=== PATIENT | male | born 1975 | race Caucasian/White ===

== ENCOUNTER 2018-07-01 22:20 | Emergency (ER) | payer BC ==
[~2018-07-01] VITALS: Ht 177.8 cm; Wt 108.9 kg
[2018-07-01 22:20] VITALS: BP 139/109
[2018-07-01] MEDS ORDERED: SOLU-MEDROL IV STA (22:25)
[2018-07-01] MEDS ORDERED: PEPCID IV STA (22:25)
[2018-07-01] MEDS ORDERED: BENADRYL IV STA (22:25)
--- NOTE | 2018-07-01 22:31 | ER.PDOC ---
General Chief Complaint: Requesting Medical Care Stated Complaint: ALLG REACTION Time seen by MD: 22:18 Source: patient Exam Limitations: no limitations History of Present Illness Initial Comments patient had allergy shot tonight and got welt in the area of the injection and then felt tightness in his throat, he took a benadryl tab and gave himself an epinephrine shot and feels better now no zulay. Severity: moderate Associated Symptoms: skin rash Identified Cause: yes Exposure: other Past Medical History Medical History: other Constitutional: denies chills, denies fever EENTM: denies throat pain Respiratory: denies cough, denies shortness of breath Cardiovascular: denies chest pain, denies palpitations, denies syncope Gastrointestinal: denies abdominal pain Genitourinary: denies dysuria Musculoskeletal: denies back pain Skin: rash Psychiatric/Neurological: denies headache Hematologic/Lymphatic: denies blood clots Physical Exam General Appearance: alert, no distress HEENT: ENT nml inspection, pharynx, voice nml Skin: other Extremities: non-tender, nml ROM Neck: nml inspection Respiratory: no resp. distress, breath sounds nml CVS: reg. rate & rhythm, heart sounds nml Abdomen: non-tender NEURO/PSYCH: CN's nml as tested, motor nml, sensation nml Comments there is an area of urticaria in the left arm at the injection site, no other rash noted, the area is localized to the injection site and is approx silver dollar sized, no signs of infection, airway is intact with no signs of any swelling of throat or oral structures Results/Orders Results/Orders Orders - CRYSTAL PUENTES MD Methylprednisolone Sod Succ (Solu-Medrol (07/01/18 22:25) Diphenhydramine Hcl (Benadryl) (07/01/18 22:25) Famotidine/Pf (Pepcid) (07/01/18 22:25) Saline Lock (07/01/18 22:25) Progress Progress rx for pepcid, prednisone, and epipen Departure Time of Disposition: 23:44 Disposition: 01 HOME, SELF-CARE Impression: Primary Impression: Allergic reaction Condition: Improved Patient Instructions: Anaphylactic Reaction Referrals: [facility] (PCP) PRIMARY CARE PROVIDER Additional Instructions: return for any worsening symptoms, take benadryl over the counter as directed for 5 days, do not take allergy shots Duration or Time Spent with Pa: 15 CRYSTAL PUENTES MD Jul 01, 2018 22:31
[2018-07-01] MEDS ORDERED: PEPCID IV ONE (22:40)
[2018-07-01] MEDS ORDERED: SOLU-MEDROL ONE (22:41)
[2018-07-01] MEDS ORDERED: BENADRYL ONE (22:41)
[2018-07-01 23:10] VITALS: BP 138/94
[2018-07-01 23:25] VITALS: BP 131/94
--- NOTE | 2018-07-02 | NUR ---
IV IV REMOVED CATHETER INTACT. APPLIED PRESSURE AND NO FURTHER BLEEDING AND COVERED WITH BAND AID.
[2018-07-02 04:02] VITALS: BP 131/94
== END 2018-07-02 00:10 | disposition home or self-care (01) ==
LOC: EEVIPCON 22:20 → ER 22:20
DX: T78.40XA Allergy, unspecified, initial encounter (principal); X58.XXXA Exposure to other specified factors, initial encounter
CPT/HCPCS: 96374; 96375; 99285; J1200; J2930; J3490; 99284

== ENCOUNTER → 2021-08-07 | Outpatient (CLI) | payer BC ==
--- NOTE | 2021-08-07 19:37 | DIREP ---
PROCEDURE:XRAY KNEE 2 VWS-LT COMPARISON:None. INDICATIONS:LEFT KNEE PAIN FINDINGS: BONES:Evidence of previous anterior cruciate ligament reconstruction without visualized complication. JOINTS:No large effusion. SOFT TISSUES:Chondrocalcinosis of the menisci.. OTHER:No additional findings. CONCLUSION:Postsurgical and degenerative changes. No acute process Dictated by: Rigo Tolliver DO on 08/07/2021 at 07:35 PM
== END | disposition home or self-care (01) ==
LOC: RAD 15:09
PROVIDERS: ATTEND Nurse Practitioner Family
DX: M11.262 Other chondrocalcinosis, left knee (principal); M25.562 Pain in left knee; M17.12 Unilateral primary osteoarthritis, left knee
CPT/HCPCS: 73560-LT